=== PATIENT | female | born 1970 | race Two or more races ===

== ENCOUNTER 2020-06-17 12:22 | Emergency (ER) | payer OTHER ==
[~2020-06-17] VITALS: Ht 157.5 cm; Wt 54.0 kg
[2020-06-17] MEDS ORDERED: SYNTHROID50 MCG PO (13:13)
[2020-06-17] MEDS ORDERED: BUDEO.25 IH (17:48)
[2020-06-17] MEDS ORDERED: PREDNISONE20 MG PO (17:53)
== END 2020-06-17 18:26 | disposition home or self-care (01) ==
LOC: ER 12:22
DX: U07.1 COVID-19 (principal); R06.02 Shortness of breath; R50.9 Fever, unspecified; R05 Cough

== ENCOUNTER 2024-07-09 09:00 | Emergency (ER) | payer OTHER ==
[~2024-07-09] VITALS: Ht 157.5 cm; Wt 59.0 kg
[~2024-07-09 09:00] MED LIST: BUDEO.25 IH; PREDNISONE20 MG PO; SYNTHROID50 MCG PO
[2024-07-09] MEDS ORDERED: ARMOUR THYROID30 M1 PO (09:14)
[2024-07-09] MEDS ORDERED: CEFUROXIME500 MG PO (09:14)
[2024-07-09] MEDS ORDERED: CEFTRIAXONE SODIUM 1,000 MG VIAL IV STA (10:35)
[2024-07-09] MEDS ORDERED: DEXAMETHASONE SODIUM PHOSPHATE 4 MG/ML VIAL IV STA (10:35)
[2024-07-09] MEDS ORDERED: CEFTRIAXONE SODIUM 1,000 MG VIAL ONE (10:53)
[2024-07-09] MEDS ORDERED: LIDOCAINE HCL 1% 10ML VIAL ONE (10:53)
[2024-07-09] MEDS ORDERED: DEXAMETHASONE SODIUM PHOSPHATE 4 MG/ML VIAL ONE (10:53)
[2024-07-09 11:46] LABS: HEMATOCRIT 40.7 % (36.0-45.00); HEMOGLOBIN 14.1 g/dL (12.0-15.00); MEAN CELL VOLUME 86.3 fL (80.00-100.00); MEAN CORPUSCULAR HGB CONC 34.7 g/dl (32.0-36.0); PLATELET COUNT 334 K/uL (150-450); RED BLOOD COUNT 4.71 M/uL (4.00-6.00); RED CELL DISTRIBUTION WIDTH 13.7 % (11.5-14.5)
[2024-07-09 12:12] LABS: CALCIUM 9.5 mg/dL (8.5-10.1); CREATININE SERUM 0.86 mg/dL (0.55-1.02); GFR 68.26; POTASSIUM 4.5 mEq/L (3.5-5.1)
[2024-07-09 13:05] LABS: COVID-19 AG NEGATIVE (NEGATIVE)
[2024-07-09 13:06] LABS: INFLUENZA A AG NEGATIVE (NEGATIVE)
[2024-07-09] MEDS ORDERED: KETOROLAC TROMETHAMINE 60 MG VIAL IM STA (13:40)
[2024-07-09] MEDS ORDERED: KETOROLAC TROMETHAMINE 60 MG VIAL IM ONE (13:51)
== END 2024-07-09 14:07 | disposition home or self-care (01) ==
LOC: ER 09:01
PROVIDERS: General Practice
DX: B27.90 Infectious mononucleosis, unspecified without complication (principal); Z20.822 Contact with and (suspected) exposure to COVID-19